=== PATIENT | male | born 1960 | race Two or more races ===

== ENCOUNTER 2024-05-13 09:35 | Inpatient (IN) | payer MEDICAID ==
[~2024-05-13] VITALS: Ht 170.2 cm; Wt 97.3 kg
[2024-05-13 10:25] LABS: Basophils # (auto) 0 10 ^3/uL (0-0.2); Basophils % (auto) 0.5 % (0.0-2.0); Eosinophils # (auto) 0.2 10 ^3/uL (0-0.8); Eosinophils % (auto) 2.9 % (0.0-7.0); Hematocrit 44.4 % (41.0-53.0); Hemoglobin 15.1 g/dL (13.5-17.5); Lymphocytes # (auto) 2.6 10 ^3/uL (0.4-5.4); Lymphocytes % (auto) 46.5 % (10.0-50.0); Mean Corpuscular Hemoglobin 31.2 pg (28.0-32.0); Mean Corpuscular Hgb Conc. 33.9 g/dL (32.0-36.0); Monocytes # (auto) 0.6 10 ^3/uL (0-1.3); Monocytes % (auto) 10.4 % (0.0-12.0); Neutrophils # (auto) 2.2 10 ^3/uL (1.6-8.6); Neutrophils % (auto) 39.7 % (37.0-80.0); Nucleated Red Blood Cells % 0.1 %; Red Blood Cells 4.83 10^6/uL (4.5-5.90); Red Cell Distribution Width 14.3 % (11.8-14.3); White Blood Cell 5.5 10^3/uL (4.4-10.8)
[2024-05-13 10:44] LABS: Alanine Aminotransferase 28 U/L (7-40); Albumin 4.3 g/dL (3.2-4.8); Alkaline Phosphatase 93 U/L (46-116); Anion Gap 8 (5-15); Aspartate Aminotransferase 20 U/L (13-40); BUN/Creatinine Ratio 15.6 (10.0-20.0); Blood Urea Nitrogen 14 mg/dL (9-23); Calcium 9.2 mg/dL (8.7-10.4); Carbon Dioxide 26 mmol/L (20-30); Chloride 106 mmol/L (98-107); Glucose 163 mg/dL (74-106); Magnesium 1.9 mg/dL (1.6-2.6); Potassium 3.8 mmol/L (3.5-5.1); Sodium 140 mmol/L (136-145)
[2024-05-13 10:45] LABS: Bilirubin, Total 0.9 mg/dL (0.2-1.0); Total Protein 7.6 g/dL (5.7-8.2)
[2024-05-13] MEDS: ASPirin 81 mg TAB PO ONE (10:57)
[2024-05-13 11:02] VITALS: PULSE 68; RESP 16; O2SAT 97
[2024-05-13 12:18] VITALS: PULSE 67; RESP 16; O2SAT 97
[2024-05-13] MEDS ORDERED: ONDANSETRON HCL 4 MG/2 ML VIAL IV PRN (12:45)
[2024-05-13] MEDS ORDERED: ACETAMINOPHEN 325 MG TAB PO PRN (12:45)
[2024-05-13] MEDS ORDERED: NITROGLYCERIN 0.4 MG SL TAB SL PRN ×2 (12:45)
[2024-05-13] MEDS ORDERED: DEXTROSE (50%) 50ML SYRG IV PRN (15:15)
[2024-05-13] MEDS: FUROSEMIDE 20 MG/2 ML VIAL IV ONE (15:29)
[2024-05-13] MEDS: amLODIPine BESYLATE 5 MG TAB PO ONE (16:43)
[2024-05-13] MEDS: CAPTOPRIL 12.5 MG TAB PO ONE (16:43)
[2024-05-13 16:57] LABS: INR 1.13 (0.9-1.15); Prothrombin Time 11.9 sec (9.3-11.8)
[2024-05-13] MEDS: LISINOPRIL 5 MG TAB PO ONE (17:21)
[2024-05-13] MEDS: InsuLIN REG 1unit/0.01ml Soln (100units/ml) SC SCH (17:23)
[2024-05-13] MEDS: ACCU-CHEK COMFORT CURVE STRIP VI SCH (17:28)
[2024-05-13] MEDS: FUROSEMIDE 20 MG/2 ML VIAL IV SCH (18:00)
[2024-05-13 20:56] LABS: Urine Bacteria None Seen /hpf (None Seen)
[2024-05-13 21:00] VITALS: BP 142/68; PULSE 65; RESP 17; TEMP 98; O2SAT 95
[2024-05-13 21:19] VITALS: BP 142/68; PULSE 65; RESP 17; TEMP 98; O2SAT 95
[2024-05-13 21:21] LABS: Urine Blood Negative /uL (Negative); Urine Clarity Clear (Clear); Urine Color Light-Yellow (Yellow); Urine Protein, UAD Negative (Negative); Urine Specific Gravity 1.012 (1.001-1.035); Urine Urobilinogen Normal (Negative); Urine WBC 1 /hpf (0 - 3)
[2024-05-13 21:27] LABS: Amphetamine Screen, Urine Neg (NEGATIVE)
[2024-05-13 21:28] LABS: Barbiturate Scree,Urine Neg (NEGATIVE); Benzodiazephine Screen, Urine Neg (NEGATIVE); Cannabinoid Screen, Urine Neg (NEGATIVE); Cocaine Screen, Urine Neg (NEGATIVE); Opiate Scree,Urine Neg (NEGATIVE); Phencyclidine Screen, Urine Neg (NEGATIVE)
[2024-05-13 21:30] VITALS: PULSE 65; RESP 17; O2SAT 95
[2024-05-13] MEDS: METOPROLOL TARTRATE 25 MG TAB PO SCH (21:36)
[2024-05-13] MEDS: LISINOPRIL 5 MG TAB PO SCH (21:37)
[2024-05-13] MEDS: ATORVASTATIN 20 MG TAB PO SCH (21:38)
[2024-05-13] MEDS ORDERED: CAPT25TA5 PO (22:27)
[2024-05-13] MEDS ORDERED: PANT40TA57 PO (22:27)
[2024-05-13] MEDS ORDERED: CELE1CAP29 PO (22:27)
[2024-05-13] MEDS ORDERED: AMLO1TAB22 PO (22:27)
[2024-05-13] MEDS ORDERED: BUPR150T18 PO (22:27)
[2024-05-14] VITALS (14 sets, daily range): BP systolic 109–148; BP diastolic 60–85; PULSE 52–74; RESP 12–21; TEMP 97.5–98.2; O2SAT 95–100
[2024-05-14 06:01] LABS: Basophils # (auto) 0 10 ^3/uL (0-0.2); Basophils % (auto) 0.6 % (0.0-2.0); Eosinophils # (auto) 0.2 10 ^3/uL (0-0.8); Hematocrit 42.1 % (41.0-53.0); Hemoglobin 14.6 g/dL (13.5-17.5); Lymphocytes # (auto) 1.3 10 ^3/uL (0.4-5.4); Lymphocytes % (auto) 24.5 % (10.0-50.0); Mean Corpuscular Hemoglobin 31.8 pg (28.0-32.0); Mean Corpuscular Hgb Conc. 34.6 g/dL (32.0-36.0); Mean Corpuscular Volume 91.9 fL (80.0-100.0); Monocytes # (auto) 0.7 10 ^3/uL (0-1.3); Monocytes % (auto) 13.4 % (0.0-12.0); Neutrophils # (auto) 3.1 10 ^3/uL (1.6-8.6); Neutrophils % (auto) 58.5 % (37.0-80.0); Red Blood Cells 4.58 10^6/uL (4.5-5.90); Red Cell Distribution Width 14.6 % (11.8-14.3); White Blood Cell 5.4 10^3/uL (4.4-10.8)
[2024-05-14 06:16] LABS: Alanine Aminotransferase 24 U/L (7-40); Albumin 3.9 g/dL (3.2-4.8); Alkaline Phosphatase 80 U/L (46-116); Anion Gap 9 (5-15); Aspartate Aminotransferase 21 U/L (13-40); BUN/Creatinine Ratio 14.7 (10.0-20.0); Bilirubin, Total 0.9 mg/dL (0.2-1.0); Blood Urea Nitrogen 14 mg/dL (9-23); Calcium 8.9 mg/dL (8.7-10.4); Carbon Dioxide 26 mmol/L (20-30); Chloride 107 mmol/L (98-107); Cholesterol 169 mg/dL (< 200); Glucose 115 mg/dL (74-106); HDL Cholesterol 41 mg/dL (40-59); LDL Cholesterol 114 mg/dL (< 100); Potassium 3.4 mmol/L (3.5-5.1); Sodium 142 mmol/L (136-145); Triglycerides 84 mg/dL (< 150)
[2024-05-14] MEDS: ASPirin 81 mg TAB PO SCH (10:00)
[2024-05-14] MEDS: DOCUSATE SOD 100 MG CAP PO SCH (10:00)
[2024-05-14] MEDS: amLODIPine BESYLATE 5 MG TAB PO SCH (10:00)
[2024-05-14] MEDS: ANGIOMAX 250 MG VIAL IV ONE (11:30)
[2024-05-14] MEDS: VERAPAMIL 2.5MG/ML INJ 2ML VIAL IV ONE (11:30)
[2024-05-14] MEDS: SODIUM CHL 0.9% 50 ML ONE (11:30)
[2024-05-14] MEDS: MIDAZOLAM HCL 2MG/2ML 2ml VIAL (1mg/ml) ONE (11:30)
[2024-05-14] MEDS: fentaNYL CITRATE 100 MCG/2 ML VL ONE (11:30)
[2024-05-14] MEDS: HEPARIN SODIUM (PORCINE) 5000 UNITS/ML 1ML VIAL ONE (11:30)
[2024-05-14] MEDS: LIDOCAINE 2%HCL (LOCAL ANESTH.) INJ 20ML MDV ONE (11:30)
[2024-05-14] MEDS: IODIXANOL 320MG/ML 100ML BTL IV ONE ×2 (11:39→12:05)
[2024-05-14] MEDS: ASPirin 81 mg TAB ONE (12:37)
[2024-05-14] MEDS: CLOPIDOGREL BISULFATE 75 MG TAB ONE (12:37)
[2024-05-14] MEDS: POTASSIUM CHL 20 Meq TABLET PO STA (14:31)
[2024-05-14] MEDS: ATORVASTATIN 20 MG TAB PO SCH (19:27)
[2024-05-15 01:00] VITALS: BP 130/67; PULSE 68; RESP 15; TEMP 98.1; O2SAT 97
[2024-05-15 04:59] VITALS: BP 124/78; PULSE 53; RESP 15; TEMP 98.4; O2SAT 97
[2024-05-15 06:02] LABS: Anion Gap 7 (5-15); Calcium 8.8 mg/dL (8.7-10.4); Carbon Dioxide 26 mmol/L (20-30); Chloride 105 mmol/L (98-107); Sodium 138 mmol/L (136-145)
[2024-05-15 06:08] LABS: BUN/Creatinine Ratio 16.7 (10.0-20.0); Blood Urea Nitrogen 16 mg/dL (9-23); Glucose 134 mg/dL (74-106)
[2024-05-15 06:10] LABS: Basophils # (auto) 0 10 ^3/uL (0-0.2); Basophils % (auto) 0.5 % (0.0-2.0); Eosinophils # (auto) 0.2 10 ^3/uL (0-0.8); Eosinophils % (auto) 2.8 % (0.0-7.0); Hematocrit 42.6 % (41.0-53.0); Hemoglobin 14.7 g/dL (13.5-17.5); Lymphocytes # (auto) 1.3 10 ^3/uL (0.4-5.4); Lymphocytes % (auto) 19.4 % (10.0-50.0); Mean Corpuscular Hemoglobin 31.9 pg (28.0-32.0); Mean Corpuscular Hgb Conc. 34.4 g/dL (32.0-36.0); Mean Corpuscular Volume 92.7 fL (80.0-100.0); Monocytes # (auto) 0.8 10 ^3/uL (0-1.3); Monocytes % (auto) 11.9 % (0.0-12.0); Neutrophils # (auto) 4.4 10 ^3/uL (1.6-8.6); Neutrophils % (auto) 65.4 % (37.0-80.0); Nucleated Red Blood Cells % 0.1 %; Red Cell Distribution Width 14.4 % (11.8-14.3); White Blood Cell 6.7 10^3/uL (4.4-10.8)
[2024-05-15 08:00] VITALS: PULSE 60
[2024-05-15 09:00] VITALS: BP 100/67; PULSE 63; RESP 18; TEMP 98.1; O2SAT 96
[2024-05-15] MEDS: CLOPIDOGREL BISULFATE 75 MG TAB PO SCH (09:48)
[2024-05-15] MEDS: EMPAGLIFLOZIN 10 MG TAB PO SCH (09:49)
[2024-05-15 13:00] VITALS: BP 137/69; PULSE 63; RESP 18; TEMP 98.1; O2SAT 96
[2024-05-15] MEDS ORDERED: ATOR20TA50 PO ×2 (13:42→15:31)
[2024-05-15] MEDS ORDERED: CLOP75TA70 PO ×2 (13:42→15:31)
[2024-05-15] MEDS ORDERED: LISI-275 PO ×2 (13:42→15:31)
[2024-05-15] MEDS ORDERED: ASPI-325 PO ×2 (13:42→15:31)
[2024-05-15] MEDS ORDERED: EMPA1TAB PO ×2 (13:42→15:31)
[2024-05-15 17:00] VITALS: BP 137/75; PULSE 70; RESP 16; TEMP 97.6; O2SAT 97
== END 2024-05-15 18:30 | disposition home or self-care (01) | DRG 174 ==
LOC: ER 09:35 → TELE 12:36 → TELE-E-ADS 20:38
PROVIDERS: ADMIT Internal Medicine Pulmonary Disease; ATTEND Internal Medicine Pulmonary Disease
PROC: 027135Z Dilation of Coronary Artery, Two Arteries with Two Drug-eluting Intraluminal Devices, Percutaneous Approach (ICD-10-PCS; principal; 2024-05-14)
PROC: 4A023N7 Measurement of Cardiac Sampling and Pressure, Left Heart, Percutaneous Approach (ICD-10-PCS; 2024-05-14)
PROC: B211YZZ Fluoroscopy of Multiple Coronary Arteries using Other Contrast (ICD-10-PCS; 2024-05-14)
DX: I21.4 Non-ST elevation (NSTEMI) myocardial infarction (principal); I50.41 Acute combined systolic (congestive) and diastolic (congestive) heart failure; I11.0 Hypertensive heart disease with heart failure; E11.9 Type 2 diabetes mellitus without complications; E78.5 Hyperlipidemia, unspecified; E66.01 Morbid (severe) obesity due to excess calories; Z68.33 Body mass index [BMI] 33.0-33.9, adult; Z79.82 Long term (current) use of aspirin; Z82.49 Family history of ischemic heart disease and other diseases of the circulatory system
CPT/HCPCS: 36415; 71045; 80048; 80053; 80061; 80307; 81001; 82962; 83036; 83735; 83880; 84443; 84484; 85025; 85610; 86850; 86900; 86901; 92928; 92941; 93005; 93306; 93458; 99152; G0378; J1815; J2250; Q9967

== ENCOUNTER → 2024-06-03 | Outpatient (CLI) | payer MEDICAID ==
[~2024-06-03] MED LIST: AMLO1TAB22 PO; ASPI-325 PO; ATOR20TA50 PO; BUPR150T18 PO; CAPT25TA5 PO; CELE1CAP29 PO; CLOP75TA70 PO; EMPA1TAB PO; LISI-275 PO; PANT40TA57 PO
[2024-06-03 16:27] LABS: CRP High Sensitivity 0.05 mg/dL (<1.0)
[2024-06-03 16:50] LABS: Erythrocyte Sedimentation Rate 20 mm/hr (0-20)
== END | disposition home or self-care (01) ==
LOC: LAB 15:42
PROVIDERS: ATTEND Internal Medicine
DX: M62.82 Rhabdomyolysis (principal)
CPT/HCPCS: 36415; 82550; 85652; 86141

== ENCOUNTER → 2024-06-27 | Outpatient (CLI) | payer MEDICAID ==
[2024-06-27 16:44] LABS: Alanine Aminotransferase 27 U/L (7-40); Albumin 4.5 g/dL (3.2-4.8); Alkaline Phosphatase 93 U/L (46-116); Anion Gap 8 (5-15); Aspartate Aminotransferase 19 U/L (13-40); BUN/Creatinine Ratio 15.6 (10.0-20.0); Bilirubin, Total 0.7 mg/dL (0.2-1.0); Blood Urea Nitrogen 15 mg/dL (9-23); Calcium 9.2 mg/dL (8.7-10.4); Carbon Dioxide 25 mmol/L (20-30); Chloride 106 mmol/L (98-107); Creatine Kinase IFCC 84 U/L (46-171); Glucose 107 mg/dL (74-106); Sodium 139 mmol/L (136-145); Total Protein 7.7 g/dL (5.7-8.2)
== END | disposition home or self-care (01) ==
LOC: LAB 15:54
PROVIDERS: ATTEND Internal Medicine
DX: M79.10 Myalgia, unspecified site (principal)
CPT/HCPCS: 36415; 80053; 82550

== ENCOUNTER → 2024-08-22 | Outpatient (CLI) | payer MEDICAID ==
[2024-08-22 10:41] LABS: Alanine Aminotransferase 28 U/L (7-40); Albumin 4.2 g/dL (3.2-4.8); Alkaline Phosphatase 79 U/L (46-116); Anion Gap 6 (5-15); Aspartate Aminotransferase 21 U/L (13-40); BUN/Creatinine Ratio 13.7 (10.0-20.0); Blood Urea Nitrogen 14 mg/dL (9-23); Calcium 9.4 mg/dL (8.7-10.4); Carbon Dioxide 30 mmol/L (20-31); Chloride 107 mmol/L (98-107); Cholesterol 111 mg/dL (< 200); Glucose 105 mg/dL (74-106); HDL Cholesterol 49 mg/dL (40-59); LDL Cholesterol 49 mg/dL (< 100); Potassium 4.9 mmol/L (3.5-5.1); Sodium 143 mmol/L (136-145); Triglycerides 54 mg/dL (< 150)
[2024-08-22 10:42] LABS: Bilirubin, Total 0.6 mg/dL (0.2-1.0); Total Protein 7.5 g/dL (5.7-8.2)
== END | disposition home or self-care (01) ==
LOC: LAB 08:42
PROVIDERS: ATTEND Internal Medicine
DX: I25.10 Atherosclerotic heart disease of native coronary artery without angina pectoris (principal); R94.4 Abnormal results of kidney function studies; R73.03 Prediabetes
CPT/HCPCS: 36415; 80053; 80061; 83036

== ENCOUNTER 2024-09-10 14:46 | Emergency (ER) | payer MEDICAID ==
[~2024-09-10] VITALS: Ht 170.2 cm; Wt 95.9 kg
--- NOTE | 2024-09-10 16:05 | ECG ---
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
--- NOTE | 2024-09-10 16:55 | ED.PDOC ---
Musculoskeletal HPI Comments HPI: Poor Historian. 64-year-old male sent from his PCP's office today for evaluation of right upper extremity numbness that started last night. Note accompanying the patient from the PCP's office requesting to rule out stroke. 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 He thinks that this may have exacerbated his symptoms. Denies any other acute symptoms. Denies any focal neurological deficits. Patient points specifically to his mid forearm where his area of numbness is. Vitals: Temp: 97F RR: 16 O2 sat: 98% HR: 65 BP: 139/67 PMH: HTN PSH: Right thumb surgery Social history: denies tobacco use, Occasional ETOH use, denies drug use Meds: unknown allergies: NKDA REVIEW OF SYSTEMS: CONSTITUTIONAL: Denies acute: fever, diaphoresis, chills, generalized weakness. HEAD: Denies acute: headache, photophobia Eyes: Denies acute: Double vision, vision loss, eye pain, eye discharge. EARS: Denies acute: tinnitus, hearing loss, ear discharge, ear pain, THROAT: Denies acute: sore throat, swelling, difficulty swallowing , pain with swallowing, change in voice. NECK: Denies acute: neck pain, neck swelling, stiff neck. HEART: Denies acute : chest pain, palpitations, LUNGS: Denies acute: SOB, wheezing, cough, hemoptysis ABDOMEN: Denies acute: abdominal pain, Nausea, Vomiting, diarrhea, melena , hematemesis, hematochezia SKIN: Denies acute: rash, redness, lesions, itchiness. EXTREMITIES: Denies acute: calf pain, weakness, denies pain in extremity. Denies acute: Low back pain. Neuro: Denies acute: focal neurological deficit, motor or sensory focal neurological deficit, tremors, seizure like activity, confusion, dizziness, change in mental status, loss of bowel or bladder function, cauda equina like symptoms. : Denies acute: dysuria, hematuria, flank pain, increase in urinary frequency. PSYCH: Denies acute: hallucination, suicidal ideation, homicidal ideation. PHYSICAL EXAM: General: no acute distress, awake and alert. Head: normocephalic, atraumatic. Neck: supple, trachea is midline, no swelling. Throat: Normal phonation. Eyes:, no erythema, no purulent discharge, no proptosis, no icterus. Heart: regular rate, regular rhythm, no significant murmur appreciated. Lungs: no apparent respiratory distress, Able to speak in full sentences. No wheezing, no rhonchi, no crackles. No stridors Clear to auscultation bilaterally. Abdomen: non tender to palpation, non distended, soft, no guarding, no rebound, + bowel sounds. Neuro: Awake, Alert, oriented to name, self, situation, follows commands GCS=15. Speech is normal. Skin: no petechia, no purpura, no cyanosis, non-pale, not jaundice. Lower extremities: --no - Pitting edema no deformity, no focal swelling, no calf TTP. Makes eye contact. moves all four extremities. Face: no apparent facial droop. Ambulating in the ED independently. Ears: Normal appearing TM b/l, Stroke: finger to nose cerebellar testing is intact. No pronator drift. 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 Patient is neurovascularly intact in the affected extremity. PERRLA, EOM-I CN 2-12 are grossly intact, No nystagmus. Chief Complaint: Upper Extremity Paresis Time Seen by MD: 15:20 Primary Care Provider: UNKNOWN Reviewed Notes: Nurses Notes, Medications, Allergies Allergies: Coded Allergies: NO KNOWN ALLERGIES (Unverified , 05/13/24) Home Meds Active Scripts Lisinopril (Lisinopril) 5 Mg Tab, 10 MG PO BID for 60 Days, #240 TAB 1 Refill Prov:EVARISTO MONTALVO RESIDENT 05/15/24 Empagliflozin (Jardiance) 10 Mg Tab, 10 MG PO DAILY for 60 Days, #60 TAB 1 Refill Prov:EVARISTO MONTALVO RESIDENT 05/15/24 Clopidogrel Bisulfate (CLOPIDOGREL) 75 Mg Tab, 75 MG PO DAILY for 60 Days, #60 TAB 1 Refill Prov:EVARISTO MONTALVO RESIDENT 05/15/24 Atorvastatin Calcium (ATORVASTATIN CALCIUM) 20 Mg Tab, 40 MG PO HS for 60 Days, #120 TAB 1 Refill Prov:EVARISTO MONTALVO RESIDENT 05/15/24 Aspirin (Aspirin Low Dose) 81 Mg Tab, 81 MG PO DAILY for 60 Days, #60 TAB 1 Refill Prov:EVARISTO MONTALVO RESIDENT 05/15/24 Reported Medications Amlodipine Besylate (Amlodipine Besylate) 5 Mg Tab, 5 MG PO DAILY for 30 Days, MG 05/13/24 Celecoxib (Celecoxib) 200 Mg Cap, 1 CAP PO DAILY 05/13/24 Pantoprazole Sodium Sesquihydr (Pantoprazole Sodium Dr) 40 Mg Tab, 1 TAB PO CONNIE Y 05/13/24 Bupropion Hcl (Bupropion Hcl Xl) 150 Mg Tab, 1 TAB PO DAILY 05/13/24 Captopril (Captopril) 25 Mg Tab, 1 TAB PO TID 05/13/24 Information Source: Patient Mode of Arrival: Ambulatory Location: Right Past Medical History PAST MEDICAL HISTORY: HTN Family History Family History: No family hx of Cancer, No family hx of DM, No family hx of Heart kye Social History Smoker: Non-Smoker Alcohol: Occasionally Drugs: Denies Drug Use Lives In: Home Was a procedure done? Was a procedure done?: No Differential Diagnosis EXT Differential Diagnosis: Deep Vein Thrombosis, Compartment Syndrome, Sprain, Gout, DJD, Contusion, Strain, Neurovascular injury, Arthritis, Bursitis, Other (Carpal tunnel syndrome, tennis elbow, radiculopathy) X-Ray, Labs, Meds, VS Vital Signs Date Time Temp Pulse Resp B/P (MAP) Pulse Ox O2 Delivery O2 Flow Rate FiO2 09/10/24 21:54 60 18 99 Room Air 09/10/24 21:54 98.6 60 18 136/76 (96) 99 98.6 09/10/24 17:48 98.6 60 18 134/72 (92) 96 98.6 09/10/24 16:22 97.0 66 16 139/67 (91) 98 09/10/24 15:55 65 Lab Test 09/10/24 17:58 09/10/24 16:35 09/10/24 15:58 Range/Units Troponin I High Sensitivity 3 L 3 L </=54 ng/L White Blood Count 5.5 4.4-10.8 10^3/uL Red Blood Count 5.28 4.5-5.90 10^6/uL Hemoglobin 16.7 13.5-17.5 g/dL Hematocrit 49.1 41.0-53.0 % Mean Corpuscular Volume 93.0 80.0-100.0 fL Mean Corpuscular Hemoglobin 31.6 28.0-32.0 pg Mean Corpuscular Hemoglobin Concent 33.9 32.0-36.0 g/dL Red Cell Distribution Width 13.4 11.8-14.3 % Platelet Count 213 140-450 10^3/uL Mean Platelet Volume 8.8 6.9-10.8 fL Neutrophils (%) (Auto) 64.6 37.0-80.0 % Lymphocytes (%) (Auto) 23.1 10.0-50.0 % Monocytes (%) (Auto) 10.0 0.0-12.0 % Eosinophils (%) (Auto) 1.6 0.0-7.0 % Basophils (%) (Auto) 0.7 0.0-2.0 % Neutrophils # (Auto) 3.6 1.6-8.6 10 ^3/uL Lymphocytes # (Auto) 1.3 0.4-5.4 10 ^3/uL Monocytes # (Auto) 0.5 0-1.3 10 ^3/uL Eosinophils # (Auto) 0.1 0-0.8 10 ^3/uL Basophils # (Auto) 0 0-0.2 10 ^3/uL Nucleated Red Blood Cells 0.1 % Sodium Level 143 136-145 mmol/L Potassium Level 4.4 3.5-5.1 mmol/L Chloride Level 107 98-107 mmol/L Carbon Dioxide Level 30 20-31 mmol/L Anion Gap 6 5-15 Blood Urea Nitrogen 16 9-23 mg/dL Creatinine 0.96 0.700-1.30 mg/dL Glomerular Filtration Rate Calc 88 >90 mL/min BUN/Creatinine Ratio 16.7 10.0-20.0 Serum Glucose 101 74-106 mg/dL Lactic Acid Level 1.2 0.4-2.0 mmol/L Calcium Level 9.9 8.7-10.4 mg/dL Magnesium Level 2.2 1.6-2.6 mg/dL Total Bilirubin 0.5 0.2-1.0 mg/dL Aspartate Amino Transferase (AST) 22 13-40 U/L Alanine Aminotransferase (ALT) 29 7-40 U/L Alkaline Phosphatase 84 46-116 U/L Creatine Kinase 94 46-171 U/L Total Protein 8.0 5.7-8.2 g/dL Albumin 4.6 3.2-4.8 g/dL POC Glucose 119 H 70-106 mg/dl Current Medications Medications (Trade) Dose Ordered Sig/Darlene Route Start Time Stop Time Status Last Admin Aspirin 325 mg ONCE ONCE PO 09/10/24 16:30 09/10/24 16:31 DC 09/10/24 21:35 [place] [id number] Ph: [phone] DIAGNOSTIC IMAGING Diagnostic Imaging Report : [id number] Signed PATIENT: ADRIANO AVILESCCT: [id number] UNIT: [id number] : 1960 LOC: ER ROOM / BED: / AGE / SEX: 64 / M ADM STATUS: REG ER SERVICE 19 ORDERING PHYSICIAN: RYAN HALL DO PROCEDURE(s): CXRP - CHEST PORTABLE REASON: RUQ numbness ORDER NUMBER(s): [id number], ACCESSION NUMBER(s): [id number] CHEST RADIOGRAPH Indication: RUQ numbness Technique: Single frontal view of the chest was obtained Comparison: XY CHEST PORTABLE on DOS: 05/13/24 FINDINGS: Lines and Tubes: None Lungs: No focal consolidation. Pleura: No effusion. No pneumothorax. Cardiomediastinal contours: Unremarkable Bones: No acute osseous abnormality. IMPRESSION: No acute cardiopulmonary disease. ATED BY: KAREN ALDRICH DO DICTATED DATE/TIME: 09/10/241652 SIGNED BY: KAREN ALDRICH DO SIGNED DATE/TIME: 09/10/241652 CC: [place] [id number] Ph: [phone] DIAGNOSTIC IMAGING Diagnostic Imaging Report : [id number] Signed PATIENT: ADRIANO AVILESCCT: [id number] UNIT: [id number] : 1960 LOC: ER ROOM / BED: / AGE / SEX: 64 / M ADM STATUS: REG ER SERVICE 162 ORDERING PHYSICIAN: RYAN HALL DO PROCEDURE(s): HWOCT - HEAD WITHOUT CONTRAST REASON: RUQ numbness ORDER NUMBER(s): [id number], ACCESSION NUMBER(s): [id number] CLINICAL HISTORY: RUQ numbness TECHNIQUE: Helical imaging carried out from skull base to vertex without intravenous contrast. This exam was performed according to our departmental dose optimization program. Up-to-date CT equipment and radiation dose reduction techniques are utilized as appropriate. CTDIVol: [CTDIvol] mGy DLP: 1082.8 mGy-cm WID: COMPARISON: None FINDINGS: Mild patchy low attenuation throughout the cerebral white matter consistent with nonspecific white matter disease The ventricles and subarachnoid spaces are normal in size and configuration. There is no midline shift or mass effect. The farley white matter interfaces are maintained. The basal cisterns are patent. There is no evidence of acute intracranial hemorrhage or extra-axial fluid collection. The mastoid air cells and visualized paranasal sinuses are well-aerated. Partially imaged periapical lucencies in maxillary teeth IMPRESSION: 1. No acute intracranial abnormality. 2. Mild white matter chronic microvascular ischemic change. 3. Partially imaged periodontal disease in scattered maxillary teeth ATED BY: GLENN JIMENEZ MD DICTATED DATE/TIME: 09/10/241910 SIGNED BY: GLENN JIMENEZ MD SIGNED DATE/TIME: 09/10/241910 CC: Time of 1ST Reevaluation: 00:00 Reevaluation 1ST: Improved Patient Education/Counseling: Diagnosis, Treatment Family Education/Counseling: No Family Present Comments Patient presented with the above HPI.--right arm numbness----workup was initiated. patient was found with the above mentioned diagnosis. Patient was given: Aspirin Patient ED course and VS have been stabilized. Patient has been reassessed in the ED and remained in a stable condition. Patient has no neurological deficits. Pertinent incidental findings were discussed with the patient and/or family. Patient/family voices understanding and is agreeable with plan. Patient has been observed in the ED adequate length of time to insure improvement/stability. patient was discharged home in a stable condition. All the reports of any imaging studies that were ordered by myself were reviewed by myself. Departure 1 Departure Time of Disposition: 21:32 Impression: Primary Impression: Paresthesia Additional Impression: Right arm numbness Disposition: 01 HOME / SELF CARE / HOMELESS Condition: Stable Additional Instructions: Additional discharge instructions: You MUST follow-up with your primary care/family doctor in 1 to 2 days. If you are unable to see your primary care/family doctor, please return to our emergency room for re-assessment and re-evaluation in 1 to 2 days. Return to the emergency room here in our facility or to the nearest ER [facility] if your symptoms change or worsen. CONSULTATIONS: you MUST Follow-up for consultation as soon as possible with: -neurology in 1-2 days. Please call for appointment. You MUST call the consultants office yourself to make an appointment. You may need to arrange that through your insurance and/or your primary/family doctor. If you are unable to see the recruiting operations consultant in 1 to 2 days, you must return to our emergency room (or any other ER of your choice) for re-assessment and re- evaluation. Adequate fluid hydration. Rest your hand/arm Discharged With: Self Critical Care Note Critical Care Time?: No Heart Score Heart Score: Heart Score Response (Comments) Value History Slightly Suspicious 0 EKG Normal 0 Age 45-64 1 Risk Factors 1 or 2 risk factors 1 Troponin Normal limit 0 Total 2 I personally scribed for RYAN HALL DO ([email or web address]) on 09/10/24 at 17:32. Electronically submitted by Ihsan Torres ([email or web address]). I personally scribed for RYAN HALL DO ([email or web address]) on 09/10/24 at 17:42. Electronically submitted by Cheikh Armendariz ([email or web address]). I personally scribed for RYAN HALL DO ([email or web address]) on 09/10/24 at 20:53. Electronically submitted by Cheikh Armendariz ([email or web address]). RYAN HALL DO Sep 10, 2024 16:55
[2024-09-10 17:05] LABS: Basophils # (auto) 0 10 ^3/uL (0-0.2); Basophils % (auto) 0.7 % (0.0-2.0); Eosinophils # (auto) 0.1 10 ^3/uL (0-0.8); Eosinophils % (auto) 1.6 % (0.0-7.0); Hematocrit 49.1 % (41.0-53.0); Hemoglobin 16.7 g/dL (13.5-17.5); Lymphocytes # (auto) 1.3 10 ^3/uL (0.4-5.4); Lymphocytes % (auto) 23.1 % (10.0-50.0); Mean Corpuscular Hemoglobin 31.6 pg (28.0-32.0); Mean Corpuscular Hgb Conc. 33.9 g/dL (32.0-36.0); Monocytes # (auto) 0.5 10 ^3/uL (0-1.3); Neutrophils # (auto) 3.6 10 ^3/uL (1.6-8.6); Neutrophils % (auto) 64.6 % (37.0-80.0); Nucleated Red Blood Cells % 0.1 %; Platelet Count (auto) 213 10^3/uL (140-450); Red Blood Cells 5.28 10^6/uL (4.5-5.90); Red Cell Distribution Width 13.4 % (11.8-14.3); White Blood Cell 5.5 10^3/uL (4.4-10.8)
[2024-09-10 17:24] LABS: Alanine Aminotransferase 29 U/L (7-40); Albumin 4.6 g/dL (3.2-4.8); Alkaline Phosphatase 84 U/L (46-116); Anion Gap 6 (5-15); Aspartate Aminotransferase 22 U/L (13-40); BUN/Creatinine Ratio 16.7 (10.0-20.0); Blood Urea Nitrogen 16 mg/dL (9-23); Calcium 9.9 mg/dL (8.7-10.4); Carbon Dioxide 30 mmol/L (20-31); Chloride 107 mmol/L (98-107); Creatine Kinase IFCC 94 U/L (46-171); Glucose 101 mg/dL (74-106); Magnesium 2.2 mg/dL (1.6-2.6); Potassium 4.4 mmol/L (3.5-5.1); Sodium 143 mmol/L (136-145)
[2024-09-10 17:25] LABS: Bilirubin, Total 0.5 mg/dL (0.2-1.0)
--- NOTE | 2024-09-10 19:13 | DVH ---
CLINICAL HISTORY: RUQ numbness TECHNIQUE: Helical imaging carried out from skull base to vertex without intravenous contrast. This e xam was performed according to our departmental dose optimization program. Up-to-date CT equipment an d radiation dose reduction techniques are utilized as appropriate. CTDIVol: [CTDIvol] mGy DLP: 1082.8 mGy-cm WID: COMPARISON: None FINDINGS: Mild patchy low attenuation throughout the cerebral white matter consistent with nonspecific white ma tter disease The ventricles and subarachnoid spaces are normal in size and configuration. There is no midline cesar ft or mass effect. The farley white matter interfaces are maintained. The basal cisterns are patent. Th ere is no evidence of acute intracranial hemorrhage or extra-axial fluid collection. The mastoid air cells and visualized paranasal sinuses are well-aerated. Partially imaged periapical lucencies in max illary teeth IMPRESSION: 1. No acute intracranial abnormality. 2. Mild white matter chronic microvascular ischemic change. 3. Partially imaged periodontal disease in scattered maxillary teeth
[2024-09-10] MEDS: ASPirin 325 MG TAB PO ONE (21:35)
[2024-09-10 21:54] VITALS: BP 136/76; PULSE 60; RESP 18; TEMP 98.6; O2SAT 99
== END 2024-09-10 22:30 | disposition home or self-care (01) ==
LOC: ER 14:46
DX: R20.0 Anesthesia of skin (principal); R20.2 Paresthesia of skin; I10 Essential (primary) hypertension; Z79.02 Long term (current) use of antithrombotics/antiplatelets; Z79.1 Long term (current) use of non-steroidal anti-inflammatories (NSAID); Z79.82 Long term (current) use of aspirin; Z79.84 Long term (current) use of oral hypoglycemic drugs; Z79.899 Other long term (current) drug therapy
CPT/HCPCS: 36415; 70450; 71045; 80053; 82550; 82962; 83605; 83735; 84484; 85025; 93005

== ENCOUNTER → 2025-06-13 | Outpatient (CLI) | payer MEDICAID ==
[2025-06-13 08:51] LABS: Hematocrit 49.1 % (41.0-53.0); Hemoglobin 17.1 g/dL (13.5-17.5); Mean Corpuscular Hemoglobin 32.1 pg (28.0-32.0); Mean Corpuscular Volume 92.4 fL (80.0-100.0); Nucleated Red Blood Cells % 0.3 %
[2025-06-13 09:25] LABS: Alanine Aminotransferase 26 U/L (7-40); Albumin 4.1 g/dL (3.2-4.8); Alkaline Phosphatase 65 U/L (46-116); Anion Gap 8 (5-15); BUN/Creatinine Ratio 14.0 (10.0-20.0); Bilirubin, Total 0.8 mg/dL (0.2-1.0); Blood Urea Nitrogen 14 mg/dL (9-23); Carbon Dioxide 28 mmol/L (20-31); Cholesterol 127 mg/dL (< 200); HDL Cholesterol 48 mg/dL (40-59); Potassium 4.3 mmol/L (3.5-5.1); Sodium 143 mmol/L (136-145); Total Protein 7.4 g/dL (5.7-8.2); Triglycerides 85 mg/dL (< 150)
[2025-06-13 09:29] LABS: Urine Protein, UAD Negative (Negative)
[2025-06-13 09:34] LABS: Calcium 8.6 mg/dL (8.7-10.4); Chloride 107 mmol/L (98-107); Glucose 111 mg/dL (74-106)
== END | disposition home or self-care (01) ==
LOC: LAB 08:21
PROVIDERS: ATTEND Internal Medicine
DX: I10 Essential (primary) hypertension (principal); E78.5 Hyperlipidemia, unspecified; I25.10 Atherosclerotic heart disease of native coronary artery without angina pectoris; Z00.01 Encounter for general adult medical examination with abnormal findings; Z13.1 Encounter for screening for diabetes mellitus; R73.03 Prediabetes; R94.4 Abnormal results of kidney function studies
CPT/HCPCS: 36415; 80053; 80061; 81001; 83036; 84439; 84443; 85025

== ENCOUNTER 2025-07-04 10:18 | Emergency (ER) | payer MEDICAID ==
[~2025-07-04] VITALS: Ht 170.2 cm; Wt 98.8 kg
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
[2025-07-04] MEDS ORDERED: METH-1182 PO (11:47)
[2025-07-04 11:50] VITALS: BP 118/67; PULSE 58; RESP 16; TEMP 98.1; O2SAT 96
== END 2025-07-04 11:58 | disposition home or self-care (01) ==
LOC: ER 10:18
DX: S29.011A Strain of muscle and tendon of front wall of thorax, initial encounter (principal); R51.9 Headache, unspecified; I10 Essential (primary) hypertension; E78.5 Hyperlipidemia, unspecified; Z79.82 Long term (current) use of aspirin; Z79.84 Long term (current) use of oral hypoglycemic drugs; Z79.899 Other long term (current) drug therapy; Z86.73 Personal history of transient ischemic attack (TIA), and cerebral infarction without residual deficits; V89.2XXA Person injured in unspecified motor-vehicle accident, traffic, initial encounter; Y93.I9 Activity, other involving external motion; Y92.488 Other paved roadways as the place of occurrence of the external cause; Y99.8 Other external cause status
CPT/HCPCS: 70450

== ENCOUNTER 2025-07-28 08:15 | Outpatient (CLI) | payer MEDICAID ==
[~2025-07-28 08:15] MED LIST changes: +METH-1182 PO
== END 2025-07-28 17:00 | disposition home or self-care (01) ==
LOC: LAB 08:15
PROVIDERS: ATTEND Internal Medicine
DX: R35.1 Nocturia (principal)
CPT/HCPCS: 36415; 84403; 87086

== ENCOUNTER 2025-09-02 09:24 | Emergency (ER) | payer MEDICAID ==
[~2025-09-02] VITALS: Ht 170.2 cm; Wt 76.8 kg
[2025-09-02 09:30] VITALS: TEMP 97.8
--- NOTE | 2025-09-02 09:55 | ECG ---
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
--- NOTE | 2025-09-02 10:13 | ED.PDOC ---
History of Present Illness HPI Comments 65 year old male with PMHx CVA, HTN, HLD presents to the ED with a chief complaint of dizziness onset 2 weeks. Patient states he has been experiencing dizziness for the past 2 weeks, went to see PCP, Dr. Lowe, had EKG done, was advised to come to ED to rule out CVA. This morning, he noticed he began expe riencing hematuria. Denies fever, chills, chest pain, shortness of breath, nausea, vomiting, diarrhea, abdominal pain, blurred vision. No other symptoms or modifying factors present at this time. Chief Complaint: Dizziness Time Seen by MD: 10:00 Primary Care Provider: UNKNOWN Reviewed Notes: Medications, Allergies Allergies: Coded Allergies: NO KNOWN ALLERGIES (Unverified , 05/13/24) Home Meds Active Scripts Methocarbamol (Methocarbamol) 750 Mg Tab, 750 MG PO BID, #30 TAB Prov:BOYD BERMAN 07/04/25 Lisinopril (Lisinopril) 5 Mg Tab, 10 MG PO BID for 60 Days, #240 TAB 1 Refill Prov:EVARISTO MONTALVO RESIDENT 05/15/24 Empagliflozin (Jardiance) 10 Mg Tab, 10 MG PO DAILY for 60 Days, #60 TAB 1 Refill Prov:EVARISTO MONTALVO RESIDENT 05/15/24 Clopidogrel Bisulfate (CLOPIDOGREL) 75 Mg Tab, 75 MG PO DAILY for 60 Days, #60 TAB 1 Refill Prov:EVARISTO MONTALVO 05/15/24 Atorvastatin Calcium (ATORVASTATIN CALCIUM) 20 Mg Tab, 40 MG PO HS for 60 Days, #120 TAB 1 Refill Prov:EVARISTO MONTALVO 05/15/24 Aspirin (Aspirin Low Dose) 81 Mg Tab, 81 MG PO DAILY for 60 Days, #60 TAB 1 Refill Prov:EVARISTO MONTALVO RESIDENT 05/15/24 Reported Medications Amlodipine Besylate (Amlodipine Besylate) 5 Mg Tab, 5 MG PO DAILY for 30 Days, MG 05/13/24 Celecoxib (Celecoxib) 200 Mg Cap, 1 CAP PO DAILY 05/13/24 Pantoprazole Sodium Sesquihydr (Pantoprazole Sodium Dr) 40 Mg Tab, 1 TAB PO DAILY 05/13/24 Bupropion Hcl (Bupropion Hcl Xl) 150 Mg Tab, 1 TAB PO DAILY 05/13/24 Captopril (Captopril) 25 Mg Tab, 1 TAB PO TID 05/13/24 Information Source: Patient Mode of Arrival: Ambulatory Severity: Moderate Timing: Hours Duration: Since onset Prehospital treatment: None Past Medical History PAST MEDICAL HISTORY: CVA, High Lipids, HTN Surgical History: Denies all surgeries Family History Family History: Reviewed,noncontributory to illness, No family hx of Cancer, No family hx of DM, No family hx of Heart kye Social History Smoker: Non-Smoker Alcohol: Occasionally Drugs: Denies Drug Use Lives In: Home Constitutional: denies: chills, diaphoresis, fatigue, fever, malaise, sweats, weakness, others EENTM: denies: blurred vision, double vision, ear bleeding, ear discharge, ear drainage, ear pain, ear ringing, eye pain, eye redness, hearing loss, mouth pain, mouth swelling, nasal discharge, nose bleeding, nose congestion, nose pain, photophobia, tearing, throat pain, throat swelling, voice changes, others Respiratory: denies: cough, hemoptysis, orthopnea, SOB at rest, shortness of breath, SOB with excertion, stridor, wheezing, others Cardiovascular: denies: chest pain, dizzy spells, diaphoresis, Dyspnea on exertion, edema, irregular heart beat, left arm pain, lightheadedness, palpitations, PND, syncope, others Gastrointestinal: denies: abdomen distended, abdominal pain, blood streaked bowels, constipated, diarrhea, dysphagia, difficulty swallowing, hematemesis, melena, nausea, poor appetite, poor fluid intake, rectal bleeding, rectal pain, vomiting, others Genitourinary: reports: hematuria; denies: burning, dysuria, flank pain, frequency, incontinence, penile discharge, penile sore, pain, testicle pain, testicle swelling, urgency, others Neurological: reports: dizziness; denies: fainting, headache, left sided nu mbness, left sided weakness, numbness, paresthesia, pre-existing deficit, right sided numbness, right sided weakness, seizure, speech problems, tingling, tremors, weakness, others Musculoskeletal: denies: back pain, gout, joint pain, joint swelling, muscle pain, muscle stiffness, neck pain, others Integumetry: denies: bruises, change in color, change in hair/nails, dryness, laceration, lesions, lumps, rash, wounds, others Allergic/Immunocompromised: denies: Difficulty Healing, Frequent Infections, Hives, Itching, others Hematologic/Lymphatic: denies: anemia, blood clots, easy bleeding, easy bruising, swollen glands, others Endocrine: denies: excessive hunger, excessive sweating, excessive thirst, excessive urination, flushing, intolerance to cold, intolerance to heat, unexpla ined weight gain, unexplained weight loss, others Psychiatric: denies: anxiety, bipolar disorder, depression, hopeless, panic disorder, schizophrenia, sleepless, suicidal, others All Other Systems: Reviewed and Negative Physical Exam General Appearance: Moderate Distress, Normal HEENT: Normal ENT Inspection, Pharynx Normal, TMs Normal Neck: Full Range of Motion, Non-Tender, Normal, Normal Inspection Respiratory: Chest Non-Tender, Lungs Clear, No Accessory Muscle Use, No Respiratory Distress, Normal Breath Sounds Cardiovascular: No Edema, No JVD, No Murmur, No Gallop, Normal Peripheral Pulses, Regular Rate/Rhythm Breast Exam: Deferred Gastrointestinal: No Organomegaly, Non Tender, No Pulsatile Mass, Normal Bowel Sounds, Soft Genitalia: Deferred Pelvic: Deferred Rectal: Deferred Extremities: No calf tenderness, Normal capillary refill, Normal inspection, Normal range of motion, Non-tender, No pedal edema Musculoskeletal : Apperance: Normal Neurologic: 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 Was a procedure done?: No EKG EKG : Pulse Rate (adult): 66 Cardiac Rhythm: NSR Differential Dx Considerations may include: Autonomic disorder X-Ray, Labs, Meds, VS Vital Signs Date Time Temp Pulse Resp B/P (MAP) Pulse Ox O2 Delivery O2 Flow Rate FiO2 09/02/25 12:06 70 18 168/88 (114) 98 09/02/25 10:13 66 09/02/25 09:42 66 09/02/25 09:30 97.8 71 16 169/90 98 97.8 Lab Test 09/02/25 11:30 09/02/25 10:29 Range/Units Troponin I High Sensitivity 7 7 </=54 ng/L White Blood Count 7.9 4.4-10.8 10^3/uL Red Blood Count 5.17 4.5-5.90 10^6/uL Hemoglobin 16.4 13.5-17.5 g/dL Hematocrit 47.5 41.0-53.0 % Mean Corpuscular Volume 92.0 80.0-100.0 fL Mean Corpuscular Hemoglobin 31.8 28.0-32.0 pg Mean Corpuscular Hemoglobin Concent 34.6 32.0-36.0 g/dL Red Cell Distribution Width 14.0 11.8-14.3 % Platelet Count 220 140-450 10^3/uL Mean Platelet Volume 9.0 6.9-10.8 fL Neutrophils (%) (Auto) 72.5 37.0-80.0 % Lymphocytes (%) (Auto) 17.9 10.0-50.0 % Monocytes (%) (Auto) 8.4 0.0-12.0 % Eosinophils (%) (Auto) 0.9 0.0-7.0 % Basophils (%) (Auto) 0.3 0.0-2.0 % Neutrophils # (Auto) 5.7 1.6-8.6 10 ^3/uL Lymphocytes # (Auto) 1.4 0.4-5.4 10 ^3/uL Monocytes # (Auto) 0.7 0-1.3 10 ^3/uL Eosinophils # (Auto) 0.1 0-0.8 10 ^3/uL Basophils # (Auto) 0 0-0.2 10 ^3/uL Nucleated Red Blood Cells 0.1 % Sodium Level 142 136-145 mmol/L Potassium Level 4.2 3.5-5.1 mmol/L Chloride Level 103 98-107 mmol/L Carbon Dioxide Level 28 20-31 mmol/L Anion Gap 11 5-15 Blood Urea Nitrogen 17 9-23 mg/dL Creatinine 0.86 0.700-1.30 mg/dL Glomerular Filtration Rate Calc 96 >90 mL/min BUN/Creatinine Ratio 19.8 10.0-20.0 Serum Glucose 99 74-106 mg/dL Calcium Level 9.3 8.7-10.4 mg/dL [facility] [address] [facility] [address] Ph: [phone] DIAGNOSTIC IMAGING Diagnostic Imaging Report : [id number] Signed PATIENT: ADRIANO AVILESCCT: [id number] UNIT: [id number] : 1960 LOC: ER ROOM / BED: / AGE / SEX: 65 / M ADM STATUS: REG ER SERVICE 1019 ORDERING PHYSICIAN: ANGEL BALTAZAR MD PROCEDURE(s): CXRP - CHEST PORTABLE REASON: sob ORDER NUMBER(s): [id number], ACCESSION NUMBER(s): [id number] EXAM: XY CHEST PORTABLE HISTORY: sob COMPARISON: XY CHEST PORTABLE on DOS: 09/10/24, XY CHEST PORTABLE on DOS: 05/13/24 TECHNIQUE: Portable upright AP view of the chest was performed. FINDINGS: No pneumothorax, consolidative infiltrates, or pulmonary edema. There are calcified granulomas in both lungs. The heart is not enlarged. There is thoracic spondylosis and slight dextroscoliosis. IMPRESSION: Old granulomatous disease of the chest without evidence of acute intrathoracic process. ATED BY: CHANTAL GRAY MD DICTATED DATE/TIME: 09/02/25 104 SIGNED BY: CHANTAL GRAY MD SIGNED DATE/TIME: 09/02/251043 CC: Patient alert. Complaining of dizziness, Vitals stable. Answering questions. Chest x-ray reviewed does not show any acute changes. Explained to the patient. Continue monitoring. Patient states that he is feeling better. Cardiac marker within normal limits. CT of the head reviewed does not show any acute changes. Explained to the patient. Was told to follow up with his primary care physician. Was told to come back if there is any problem. Time of 1ST Reevaluation: 10:30 Reevaluation 1ST: Unchanged Patient Education/Counseling: Diagnosis, Treatment, Prognosis Family Education/Counseling: No Family Present SEPSIS Sepsis Screen Date sepsis recognized/suspect: Sep 02, 2025 Time Sepsis recognized/suspect: 934 Recent Procedure: No On Antibiotic Therapy: No Respiratory Rate >20: No Heart Rate >90: No Temp<36 C (96.8 F) or >38.3 C: No SBP <90 or MAP <65 mmHG: No New Acute Mental Status Change: No Is the patient on CPAP, BIPAP,: No Physician Orders Chest Portable (09/02/25 10:19) Head Without Contrast (09/02/25 11:45) Vital Signs Date Time Temp Pulse Resp B/P (MAP) Pulse Ox O2 Delivery O2 Flow Rate FiO2 09/02/25 12:06 70 18 168/88 (114) 98 09/02/25 10:13 66 09/02/25 09:42 66 09/02/25 09:30 97.8 71 16 169/90 98 97.8 Laboratory Tests Test 09/02/25 10:29 White Blood Count 7.9 10^3/uL (4.4-10.8) Departure 1 Departure Time of Disposition: 12:26 Impression: Primary Impression: Autonomic disorder Disposition: 01 HOME / SELF CARE / HOMELESS Condition: Good Discharged With: Self Critical Care Note Critical Care Time?: Yes (90 min-critical care time only) Stability Stability form required: No Heart Score Heart Score: Heart Score Response (Comments) Value History Slightly Suspicious 0 EKG Normal 0 Age >65 2 Risk Factors >3 or Hx ASHD 2 Troponin Normal limit 0 Total 4 I personally scribed for ANGEL BALTAZAR MD ([email or web address]) on 09/02/25 at 10:13. Electronically submitted by Yesenia Sanchez ([email or web address]). I personally scribed for ANGEL BALTAZAR MD ([email or web address]) on 09/02/25 at 11:37. Electronically submitted by Yesenia Sanchez ([email or web address]). ANGEL BALTAZAR MD Sep 02, 2025 10:13
--- NOTE | 2025-09-02 10:46 | DVH ---
EXAM: XY CHEST PORTABLE HISTORY: sob COMPARISON: XY CHEST PORTABLE on DOS: 09/10/24, XY CHEST PORTABLE on DOS: 05/13/24 TECHNIQUE: Portable upright AP view of the chest was performed. FINDINGS: No pneumothorax, consolidative infiltrates, or pulmonary edema. There are calcified granulomas in both lungs. The heart is not enlarged. There is thoracic spondylosis and slight dextroscoliosis. IMPRESSION: Old granulomatous disease of the chest without evidence of acute intrathoracic process.
[2025-09-02 11:04] LABS: Chloride 103 mmol/L (98-107); Potassium 4.2 mmol/L (3.5-5.1); Sodium 142 mmol/L (136-145)
[2025-09-02 11:05] LABS: Anion Gap 11 (5-15); Calcium 9.3 mg/dL (8.7-10.4); Carbon Dioxide 28 mmol/L (20-31)
[2025-09-02 11:08] LABS: Hematocrit 47.5 % (41.0-53.0); Hemoglobin 16.4 g/dL (13.5-17.5); Mean Corpuscular Hemoglobin 31.8 pg (28.0-32.0); Mean Corpuscular Volume 92.0 fL (80.0-100.0); Nucleated Red Blood Cells % 0.1 %
[2025-09-02 11:10] LABS: BUN/Creatinine Ratio 19.8 (10.0-20.0); Blood Urea Nitrogen 17 mg/dL (9-23); Glucose 99 mg/dL (74-106)
[2025-09-02 12:06] VITALS: BP 168/88; PULSE 70; RESP 18; O2SAT 98
--- NOTE | 2025-09-02 14:17 | DVH ---
Procedure: CT HEAD WITHOUT CONTRAST Study Date and Requested Time: 09/02/2025 12:25 PM History: dizzy Comparison: CT HEAD WITHOUT CONTRAST on DOS: 07/04/25, CT HEAD WITHOUT CONTRAST on DOS: 09/10/24 Dose: CTDI: 58.45 mGy DLP: 1.71 mGycm Technique: Multiplanar images obtained through the brain without intravenous contrast. Findings: Normal brain volume and formation. Mild chronic small vessel ischemic changes. No hemorrhages, masses, mass effect, midline shift, herniation or cytotoxic edema following a large vascular territory. No intra-axial or extra-axial fluid collections. No evidence of hydrocephalus. The basal cisterns are patent. The pituitary gland, sella and parasellar regions are unremarkable. The cerebellar tonsils are in normal position. The cerebellum is unremarkable. The orbits and globes are unremarkable. The paranasal sinuses and mastoids are clear. There are no worrisome calvarial lesions. Cerumen within the right external auditory canal. Impression: No evidence of acute intracranial abnormality.
== END 2025-09-02 16:00 | disposition home or self-care (01) ==
LOC: ER 09:24
DX: G90.9 Disorder of the autonomic nervous system, unspecified (principal); I10 Essential (primary) hypertension; E78.5 Hyperlipidemia, unspecified; Z79.82 Long term (current) use of aspirin; Z79.84 Long term (current) use of oral hypoglycemic drugs; Z79.899 Other long term (current) drug therapy; Z83.3 Family history of diabetes mellitus; Z86.73 Personal history of transient ischemic attack (TIA), and cerebral infarction without residual deficits
CPT/HCPCS: 36415; 70450; 71045; 80048; 82947; 84484; 85025; 93005